=== PATIENT | male | born 1970 ===

== ENCOUNTER 2019-11-08 08:11 | Observation (INO) ==
[2019-11-08 08:49] LABS: Basophils # 0.1 10*3/uL (0.0-0.2); Basophils % 0.7 % (0.0-0.8); Eosinophils # 0.8 10*3/uL (0.0-0.87); Eosinophils % 5.4 % (0.00-10.9); Hematocrit 42.8 VOL% (42.0-52.0); Hemoglobin 15.1 GM/DL (14.0-18.0); Immature Granulocytes % 0.4 %; Immature Granulocytes Absolute 0.06 #; Lymphocytes # 2.1 10*3/uL (1.4-4.0); Lymphocytes % 14.1 % (21.2-54.2); Mean Corpuscular HGB Conc 35.3 GM/DL (32-36); Mean Corpuscular Volume 88.2 FL (87-102); Mean Platelet Volume 9.1 FL (9.6-12.0); Monocytes % 6.6 % (1.7-12.7); Neutrophils % 72.8 % (38.7-73.9); Platelet Count 225 T/CUMM (130-400); Red Blood Count 4.85 MC/CUMM (3.8-5.5); Red Cell Distribution Width 13.6 % (9.3-17.3); White Blood Count 15.1 T/CUMM (4-12)
[2019-11-08 08:56] LABS: Apearance,Urine CLEAR (Clear); Bilirubin,Urine Negative (Negative); Blood, Urine Negative (Negative); Glucose,Urine (UA) 150 mg/dL (Negative); Ketones,Urine Negative (Negative); Nitrite,Urine Negative (Negative); Protein,Urine Negative; RBC,Urine 1 /HPF (0-4); Urine Color Straw (Yellow); Urine Specific Gravity 1.003 (1.001-1.035); Urine Urobilinogen < 2.0 EU/DL (0.2-1.0); WBC,Urine 1 /HPF (0-6)
[2019-11-08 09:07] LABS: Microcytosis Slight
[2019-11-08] MEDS: DEXTROSE 5% NACL 0.45% 1,000 ML IV SCH ×2 (09:18→17:45)
[2019-11-08 09:25] LABS: Albumin 3.8 G/DL (3.4-5.0); Bilirubin,Total 0.8 MG/DL (0.2-1.0); Osmolality,Calculated 282.1 MOS/KG (273-304); Total Protein 7.7 G/DL (6.4-8.3)
[2019-11-08] MEDS ORDERED: DOCUSATE SODIUM 100 MG CAPSULE PO PRN (10:17)
[2019-11-08] MEDS ORDERED: ACETAMINOPHEN 325 MG TABLET PO PRN (10:17)
[2019-11-08] MEDS ORDERED: GLUCAGON 1 MG VIAL IM PRN (10:17)
[2019-11-08] MEDS ORDERED: DEXTROSE 50% 25 GM/50 ML VIAL IV PRN (10:17)
[2019-11-08] MEDS ORDERED: ONDANSETRON 4 MG/2 ML VIAL IV PRN (10:17)
[2019-11-08] MEDS ORDERED: hydrOXYzine HCL 25 MG TABLET PO PRN (10:19)
[2019-11-08] MEDS ORDERED: POTASSIUM CHLORIDE 20 MEQ TABLET PO PRN (10:23)
[2019-11-08 10:48] LABS: Thyroid Stimulating Hormone 1.03 uIU/ml (0.358-3.74)
[2019-11-08] MEDS: INSULIN LISPRO 100 UNIT/ML SUBCUT SCH ×3 (15:20→21:14)
[2019-11-08] MEDS: ENOXAPARIN 40 MG/0.4 ML SYRINGE SUBCUT SCH (18:01)
[2019-11-08] MEDS ORDERED: POTASSIUM CHLORIDE RIDER 20 MEQ in PREMIX 1 EACH IV SCH (20:30)
[2019-11-08] MEDS: POTASSIUM CHLORIDE RIDER 10 MEQ in PREMIX 1 EACH IV SCH ×3 (21:15→23:54)
[2019-11-09] MEDS: POTASSIUM CHLORIDE RIDER 10 MEQ in PREMIX 1 EACH IV SCH (01:34)
[2019-11-09] MEDS: DEXTROSE 5% NACL 0.45% 1,000 ML IV SCH ×2 (06:47→10:20)
[2019-11-09 06:55] LABS: Basophils # 0.1 10*3/uL (0.0-0.2); Eosinophils % 10.3 % (0.00-10.9); Hematocrit 42.7 VOL% (42.0-52.0); Hemoglobin 15.1 GM/DL (14.0-18.0); Immature Granulocytes % 0.3 %; Immature Granulocytes Absolute 0.03 #; Lymphocytes # 2.9 10*3/uL (1.4-4.0); Lymphocytes % 29.9 % (21.2-54.2); Mean Corpuscular HGB Conc 35.4 GM/DL (32-36); Mean Corpuscular Volume 87.9 FL (87-102); Monocytes % 8.7 % (1.7-12.7); Neutrophils % 49.8 % (38.7-73.9); Platelet Count 282 T/CUMM (130-400); Red Blood Count 4.86 MC/CUMM (3.8-5.5); Red Cell Distribution Width 13.4 % (9.3-17.3); White Blood Count 9.7 T/CUMM (4-12)
[2019-11-09 07:14] LABS: Calcium 8.9 MG/DL (8.5-10.1); Osmolality,Calculated 273.7 MOS/KG (273-304)
[2019-11-09] MEDS ORDERED: FENOFIBRATE 145 MG TABLET PO SCH (09:00)
[2019-11-09] MEDS ORDERED: lisinopriL 2.5 MG TABLET PO SCH (09:00)
[2019-11-09] MEDS ORDERED: ASPIRIN EC 81 MG TABLET PO SCH (09:00)
[2019-11-09] MEDS ORDERED: PANTOPRAZOLE 40 MG TABLET PO SCH (09:00)
[2019-11-09] MEDS ORDERED: MAGNESIUM SULF RIDER 2 GM in PREMIX 1 EACH IV ONE (09:30)
[2019-11-09] MEDS: INSULIN LISPRO 100 UNIT/ML SUBCUT SCH (10:18)
[2019-11-09 11:13] VITALS: BP 115/87
[2019-11-09] MEDS: ENOXAPARIN 40 MG/0.4 ML SYRINGE SUBCUT SCH (11:57)
== END 2019-11-09 12:20 | disposition home or self-care (01) ==
LOC: EDBD → EDUNIT# → N.ED 08:11 → N.EDINP 08:11 → N.2W 12:18
PROVIDERS: ADMIT Internal Medicine; ATTEND Internal Medicine